=== PATIENT | female | born 1975 | race Caucasian/White ===

== ENCOUNTER 2020-11-04 05:28 | Observation (INO) ==
[2020-11-04] MEDS ORDERED: Lactated Ringers 1000 ml BAG 1,000 ML IV SCH (06:00)
[2020-11-04] MEDS ORDERED: Buffered Lidocaine 1% SYRIN 1 ml INTRADERM ONE (06:00)
[2020-11-04] MEDS ORDERED: ceFAZolin 2 GM PREMIX 2 GM/50 ML BAG ONE (06:21)
[2020-11-04] MEDS ORDERED: Midazolam 2 mg/2 ml VIAL 1 mg/ml 2 ml VIAL (2 mg) ONE (06:59)
[2020-11-04] MEDS ORDERED: Lidocaine 2% PF 5 ML VIAL ONE ×2 (07:03→09:42)
[2020-11-04] MEDS ORDERED: Propofol 10 MG/ML 20 ML BTL ONE ×2 (07:04→08:50)
[2020-11-04] MEDS ORDERED: Ondansetron 4 mg VIAL 2 MG/ML 2 ml VIAL ONE (07:04)
[2020-11-04] MEDS ORDERED: Ketamine HCL 50 mg/ml 10 ml VIAL (500 MG) ONE (07:05)
[2020-11-04] MEDS ORDERED: Phenylephrine IV 10 MG/ML 1 ml VIAL ONE (07:08)
[2020-11-04] MEDS ORDERED: ROPIVACAINE 5 MG/ML 30 ML BTL (0.5%) ONE (07:18)
[2020-11-04] MEDS ORDERED: Lidocaine 1% MPF 5 ML VIAL ONE (07:18)
[2020-11-04] MEDS ORDERED: Rocuronium 50 mg VIAL 10 mg/ml 5 ml VIAL (50 mg) ONE ×2 (07:37→08:41)
[2020-11-04] MEDS ORDERED: fentaNYL 250 mcg/5 ml 50 MCG/ML 5 ml VIAL (250 MCG) ONE (07:42)
[2020-11-04] MEDS ORDERED: Lidocaine 1% w EPI 1:200,000 SDV 30 ML VIAL ONE ×2 (07:48→07:49)
[2020-11-04] MEDS ORDERED: Bupivacaine 0.25% SDV PF 10 ML VIAL INJ ONE (07:48)
[2020-11-04] MEDS ORDERED: Vancomycin 1,000 MG VIAL ONE (07:48)
[2020-11-04] MEDS ORDERED: Dexamethasone IV 4 MG/ML VIAL 1 ml VIAL ONE (08:04)
[2020-11-04] MEDS ORDERED: fentaNYL 100 mcg/2 ml 50 MCG/ML VIAL IV PRN (08:29)
[2020-11-04] MEDS ORDERED: Ondansetron 4 mg VIAL 2 MG/ML 2 ml VIAL IV PRN ×2 (08:29→10:08)
[2020-11-04] MEDS ORDERED: Naloxone 0.4 mg VIAL 0.4 mg/ml 1 ml VIAL IV PRN (08:29)
[2020-11-04] MEDS ORDERED: HYDROmorphone 1 MG/1 ML SYRINGE ONE ×2 (08:46→11:25)
[2020-11-04] MEDS ORDERED: fentaNYL 100 mcg/2 ml 50 MCG/ML VIAL ONE (09:46)
[2020-11-04] MEDS ORDERED: Ondansetron ODT 4 mg TAB 4 MG TAB PO PRN (10:08)
[2020-11-04] MEDS ORDERED: Morphine 2 MG/ML SYRINGE IV PRN (10:08)
[2020-11-04] MEDS ORDERED: Lactulose 30 ml UDC PO PRN (10:08)
[2020-11-04] MEDS ORDERED: diPHENhydraMINE 25 mg TAB PO PRN (10:08)
[2020-11-04] MEDS ORDERED: diPHENhydraMINE IV 50 MG/ML 1 ml VIAL (BENADRYL) IV PRN (10:08)
[2020-11-04] MEDS ORDERED: Magnesium Hydroxide LIQ 30 ML UDC PO PRN (10:08)
[2020-11-04] MEDS ORDERED: Dextrose 50% Syringe 50 ml 25 GM/50 ML SYRINGE IV PUSH PRN (10:15)
[2020-11-04] MEDS ORDERED: Lactated Ringers 1000 ml BAG 1,000 ML IV ONE (10:16)
[2020-11-04] MEDS ORDERED: D5W 1/2 NS 1000 ml BAG 1,000 ML IV SCH (11:00)
[2020-11-04] MEDS: HYDROmorphone 1 MG/1 ML SYRINGE IV PRN ×2 (11:27→11:39)
[2020-11-04] MEDS: ceFAZolin 1 GM ADVAN 1 GM in NS 0.9% 50 ML 50 ML IVPB SCH ×2 (15:22→23:52)
[2020-11-04] MEDS: Lactated Ringers 1000 ml BAG 1,000 ML IV SCH (17:52)
[2020-11-04] MEDS: Magnesium Hydroxide LIQ 30 ML UDC PO SCH (20:54)
[2020-11-05] MEDS: Lactated Ringers 1000 ml BAG 1,000 ML IV SCH (05:34)
[2020-11-05 06:26] LABS: Hematocrit 27 % (35-47); Hemoglobin 9.4 g/dL (12.0-16.0); Mean Platelet Volume 7.5 fL (7.4-10.4); Platelet Count 306 10^3/uL (150-450)
[2020-11-05 06:46] LABS: Calcium 8.1 mg/dL (8.6-10.3); EGFR African American 90.8 (>60); EGFR Non-African American 75.1 (>60); Potassium 3.8 mmol/L (3.5-5.0)
[2020-11-05] MEDS: ceFAZolin 1 GM ADVAN 1 GM in NS 0.9% 50 ML 50 ML IVPB SCH (07:54)
[2020-11-05] MEDS: Magnesium Hydroxide LIQ 30 ML UDC PO SCH (07:55)
[2020-11-05] MEDS ORDERED: Vitamin THERAPEUTIC TAB PO SCH (09:00)
[2020-11-05] MEDS ORDERED: (Fenofibrate 200 MG) PO SCH (09:00)
[2020-11-05] MEDS ORDERED: NS 0.9% 500 ml BAG 500 ML IV SCH (11:00)
[2020-11-05 11:18] VITALS: BP 95/54
== END 2020-11-05 13:10 | disposition home or self-care (01) ==
LOC: SSU 05:28 → OR 05:28
PROVIDERS: ADMIT Orthopaedic Surgery; ATTEND Orthopaedic Surgery